=== PATIENT | male | born 1975 | race Caucasian/White ===

== ENCOUNTER 2020-10-14 16:36 | Emergency (ER) | payer SELFPAY ==
[2020-10-14] MEDS ORDERED: Bacitracin Oint 1 GM U/D Packet TOP ONE (17:03)
[2020-10-14] MEDS ORDERED: Lidocaine 1% 30 ML SDV INJECT ONE (17:03)
[2020-10-14] MEDS ORDERED: Diphtheria,Pertussis(Acell),Tetanus Vaccine 0.5 ML Syringe IM ONE (17:03)
--- NOTE | 2020-10-14 18:25 | EDM.PDOC ---
ED HPI GENERAL MEDICAL PROBLEM - General Chief Complaint: Laceration Stated Complaint: LACERATED HAND Time Seen by Provider: 10/14/20 17:30 Source of Information: Reports: Patient, RN, RN Notes Reviewed History Limitations: Reports: No Limitations - History of Present Illness INITIAL COMMENTS - FREE TEXT/NARRATIVE: Elsy is a 45 y/o male who presents to the ED via personal vehicle with complaints of laceration to right palm and anterior thumb. The patient reports his injuries occurred approximately 45 minutes prior to his arrival to this facility. He notes he was putting up barbed-wire fence when a dylan raked across his palm and thumb. He denies loss of motor or sensory function to the hand or digit. He notes he was able to stop the bleeding with pressure. He states he has never received a tetanus vaccine as he is from [facility] and he does not believe that vaccine is offered in his country. - Related Data Allergies Allergy/AdvReac Type Severity Reaction Status Date / Time No Known Allergies Allergy Verified 10/14/20 16:55 Home Meds: Home Meds . [No Known Home Meds] 10/14/20 [History] Past Medical History - Past Health History Medical/Surgical History: Denies Medical/Surgical History Other Cardiovascular History: states his family has a history of "high pulse" Respiratory History: Reports: None Gastrointestinal History: Reports: None Genitourinary History: Reports: None Musculoskeletal History: Reports: None Neurological History: Reports: None Psychiatric History: Reports: None Endocrine/Metabolic History: Reports: None Hematologic History: Reports: None Immunologic History: Reports: None Oncologic (Cancer) History: Reports: None Dermatologic History: Reports: None Social & Family History - Tobacco Use Tobacco Use Status *Q: Current Every Day Tobacco User Years of Tobacco use: 20 Packs/Tins Daily: 1 ED ROS GENERAL - Review of Systems Review Of Systems: Comprehensive ROS is negative, except as noted in HPI. ED EXAM, SKIN/RASH Exam: See Below Exam Limited By: No Limitations General Appearance: Alert, No Apparent Distress Eye Exam: Bilateral Eye: EOMI, Normal Inspection, PERRL (3mm) Ears: Normal External Exam, Hearing Grossly Normal Throat/Mouth: Normal Inspection, Normal Oropharynx, Normal Voice, No Airway Compromise Head: Atraumatic, Normocephalic Respiratory/Chest: No Respiratory Distress, Lungs Clear Cardiovascular: Normal Peripheral Pulses, Regular Rate, Rhythm, No Gallop, No Murmur, No Rub Peripheral Pulses: 2+: Radial (L), Radial (R) GI/Abdominal: Normal Bowel Sounds, Soft, Non-Tender (Male) Exam: Deferred Rectal (Males) Exam: Deferred Extremities: Normal Range of Motion, No Pedal Edema, Normal Capillary Refill, Arm Pain ( 5cm laceration to right palm and 2cm laceration to right anterior thumb). No: Joint Swelling, Increased Warmth, Mottled, Pallor, Redness Neurological: Alert, Oriented, CN II-XII Intact, Normal Cognition, Normal Gait, No Motor/Sensory Deficits Psychiatric: Normal Affect, Normal Mood Skin: Warm, Dry, Normal Color, No Rash, Wound/Incision (See above) Location, Skin: Upper Extremity, Right, Palms Characteristics: Linear, Other (Laceration) Associated features: Tenderness. No: Warmth, Swelling, Induration, Inflammation, Crusting, Weeping Lymphatic: No Adenopathy ED SKIN PROCEDURES - Laceration/Wound Repair Right Middle Anterior Midline Hand Appearance: Superficial, Linear, Clean Distal NVT: Neuro & Vascular Intact, No Tendon Injury Anesthetic Type: Local Local Anesthesia - Lidocaine (Xylocaine): 1% Plain Local Anesthetic Volume: 5cc Skin Prep: Chlorhexidine (Hibiciens), Saline, Sterile Drape Saline Irrigation (cc's): 10 Exploration/Debridement/Repair: Wound Explored, In a Bloodless Field, Explored to Base, No Foreign Material Found, Wound Margins Revised Closed with: Sutures Lac/Wound length In cm: 5 Suture Size: 4-0 # of Sutures: 10 Suture Type: Prolene, Interrupted, Simple Drain Placement: No Sterile Dressing Applied: Nurse Tetanus Status Addressed: Yes Complications: No Right Anterior Lateral Distal Digit - 1st (Thumb) Appearance: Superficial, Linear, Clean Distal NVT: Neuro & Vascular Intact, No Tendon Injury Skin Prep: Chlorhexidine (Hibiciens), Saline, Sterile Drape Saline Irrigation (cc's): 10 Exploration/Debridement/Repair: Wound Explored, In a Bloodless Field, Explored to Base, No Foreign Material Found, Wound Margins Revised Closed with: Dermabond Lac/Wound length In cm: 2 Drain Placement: No Sterile Dressing Applied: Nurse Tetanus Status Addressed: Yes Complications: No Course - Vital Signs Last Recorded V/S: Last Vital Signs Temp 98.4 F 10/14/20 16:43 Pulse 90 10/14/20 18:00 Resp 16 10/14/20 16:43 BP 128/84 10/14/20 18:00 Pulse Ox 100 10/14/20 16:43 - Orders/Labs/Meds Meds: Medications Discontinued Medications Generic Name Dose Route Start Last Admin Trade Name Katy PRN Reason Stop Dose Admin Bacitracin 1 dose 10/14/20 17:03 10/14/20 17:41 Bacitracin Oint 1 Gm U/D Packet TOP 10/14/20 17:04 1 dose ONETIME ONE Administration Diphtheria/Tetanus/Acell Pertussis 0.5 ml 10/14/20 17:03 10/14/20 18:07 Diphtheria,Pertussis(Acell),Tetanus Vaccine 0.5 Ml Syringe IM 10/14/20 17:04 0.5 ml .ONCE ONE Administration Lidocaine HCl 30 ml 10/14/20 17:03 10/14/20 17:41 Lidocaine 1% 30 Ml Sdv INJECT 10/14/20 17:04 30 ml ONETIME ONE Administration - Re-Assessments/Exams Free Text/Narrative Re-Assessment/Exam: 10/14/20 Lacerations to right hand repaired without complication. Boostrix administered. Laceration cares reviewed with patient, as well as red flag signs and symptoms which would warrant reevaluation. Patient instructed to follow up with primary care facility for suture removal in 10 days. Patient verbalized understanding and agreement with the plan of care. Departure - Departure Time of Disposition: 18:22 Disposition: Home, Self-Care 01 Condition: Good Clinical Impression: Laceration of right palm without complication Qualifiers: Encounter type: initial encounter Qualified Code(s): S61.411A - Laceration without foreign body of right hand, initial encounter - Discharge Information *PRESCRIPTION DRUG MONITORING PROGRAM REVIEWED*: Not Applicable *COPY OF PRESCRIPTION DRUG MONITORING REPORT IN PATIENT LARS: Not Applicable Instructions: Laceration Care, Adult, Sutures, Jn, or Adhesive Wound Closure, [id number] Forms: ED Department Discharge Additional Instructions: 1.) Follow up with your primary care provider for suture removal in 10 days. 2.) Keep sutures clean and dry. Keep covered while working. 3.) Monitor for signs of infection, including increased pain, redness, or white/koehler drainage. 4.) You may take ibuprofen (Advil/Motrin) 400mg every six hours, as pain and swelling persists. You may also take acetaminophen (Tylenol) 650mg every six hours, as pain persists. You may stagger these medications so you are receiving a dose every three hours.
== END 2020-10-14 18:34 | disposition home or self-care (01) ==
LOC: DL.ED 16:36
DX: S61.011A Laceration without foreign body of right thumb without damage to nail, initial encounter (principal); S61.411A Laceration without foreign body of right hand, initial encounter; Z23 Encounter for immunization; W26.8XXA Contact with other sharp object(s), not elsewhere classified, initial encounter
CPT/HCPCS: 12002; 90471; 90715; 99282-25